=== PATIENT | male | born 1965 | race Caucasian/White ===

== ENCOUNTER 2020-10-24 14:48 | Emergency (ER) | payer MEDICAID ==
--- NOTE | 2020-10-24 15:28 | EDM.PDOC ---
ED HPI GENERAL MEDICAL PROBLEM - General Chief Complaint: General Stated Complaint: WIRE FOUND IN LUNGS Time Seen by Provider: 10/24/20 14:55 Source of Information: Reports: Patient, Family History Limitations: Reports: No Limitations - History of Present Illness INITIAL COMMENTS - FREE TEXT/NARRATIVE: Patient presented to the ED because of a FB which was found on the Left lower lobe of the left lung when he had the Chest CT which was ordered due to a chronic cough. There is no associated chest pain, hemoptysis. - Related Data Allergies Allergy/AdvReac Type Severity Reaction Status Date / Time No Known Allergies Allergy Verified 10/24/20 14:58 Home Meds: Home Meds Aspirin 81 mg PO DAILY 10/24/20 [History] Bisoprolol/Hydrochlorothiazide [Bisoprolol/HCTZ 5-6.25 MG] 1 tab DAILY 10/24/20 [History] Multivitamin [One-Daily Multi-Vitamin] 1 each PO DAILY 10/24/20 [History] Omeprazole Magnesium [Prilosec Otc] 20 mg PO DAILY #30 tablet. 10/24/20 [Rx] Past Medical History Cardiovascular History: Reports: Hypertension - Infectious Disease History Infectious Disease History: Reports: Chicken Pox - Past Surgical History HEENT Surgical History: Reports: Oral Surgery GI Surgical History: Reports: Hernia Repair/Other Social & Family History - Family History Family Medical History: No Pertinent Family History - Tobacco Use Tobacco Use Status *Q: Never Tobacco User - Caffeine Use Caffeine Use: Reports: Coffee - Recreational Drug Use Recreational Drug Use: No ED ROS GENERAL - Review of Systems Review Of Systems: See Below Constitutional: Reports: No Symptoms HEENT: Reports: No Symptoms Respiratory: Reports: Cough Cardiovascular: Reports: No Symptoms Endocrine: Reports: No Symptoms GI/Abdominal: Reports: No Symptoms : Reports: No Symptoms Musculoskeletal: Reports: No Symptoms Skin: Reports: No Symptoms Neurological: Reports: No Symptoms Psychiatric: Reports: No Symptoms ED EXAM, GENERAL - Physical Exam Exam: See Below Exam Limited By: No Limitations General Appearance: Alert, No Apparent Distress Ears: Normal External Exam, Normal Canal Nose: Normal Inspection, Normal Mucosa Throat/Mouth: Normal Inspection, Normal Lips Head: Atraumatic, Normocephalic Neck: Normal Inspection, Supple, Non-Tender, Full Range of Motion Respiratory/Chest: No Respiratory Distress, Lungs Clear, Normal Breath Sounds Cardiovascular: Normal Peripheral Pulses, Regular Rate, Rhythm, No Edema GI/Abdominal: Normal Bowel Sounds, Soft, Non-Tender Back Exam: Normal Inspection, Full Range of Motion Extremities: Normal Inspection, Normal Range of Motion, Non-Tender Course - Vital Signs Last Recorded V/S: Last Vital Signs Temp 36.6 C 10/24/20 14:50 Pulse 56 L 10/24/20 14:50 Resp 18 10/24/20 14:50 BP 137/85 10/24/20 14:50 Pulse Ox 100 10/24/20 14:50 - Orders/Labs/Meds Orders: Active Orders 24 hr Category Date Time Status Chest 2V [CR] Stat Exams 10/24/20 15:04 Taken Departure - Departure Time of Disposition: 15:30 Disposition: Home, Self-Care 01 Condition: Good Clinical Impression: GERD (gastroesophageal reflux disease), Foreign body - Discharge Information Prescriptions: Omeprazole Magnesium [Prilosec Otc] 20 mg PO DAILY #30 tablet.dr Instructions: Food Choices for Gastroesophageal Reflux Disease, Adult, [id number] Referrals: Becki Balderas PA-C [Primary Care Provider] - Forms: ED Department Discharge Additional Instructions: Please read discharge instructions on GERD and foreign body Read the list of foods and beverages that can cause acied reflux The metal in your chest is not causing you harm Follow up in a month Sepsis Event Note (ED) - Evaluation Sepsis Screening Result: No Definite Risk - Focused Exam Vital Signs: Vital Signs Temp Pulse Resp BP Pulse Ox 10/24/20 14:50 36.6 C 56 L 18 137/85 100 - My Orders Last 24 Hours: My Active Orders 10/24/20 15:04 Chest 2V [CR] Stat - Assessment/Plan Last 24 Hours: My Active Orders 10/24/20 15:04 Chest 2V [CR] Stat
--- NOTE | 2020-10-24 16:45 | CR ---
INDICATION: Foreign body. CHEST, TWO VIEWS: PA and lateral views of the chest were obtained 10/24/20 and compared with chest x-rays of 10/18/[address] of the chest dated 10/22/20. A collin-like metallic density is again noted in the left lower lobe at the lower middle lung field level posteriorly and appears unchanged in position and alignment compared with the previous examinations. No definite complicating process was identified. No other evidence of active disease was seen. MTDD
== END 2020-10-24 15:40 | disposition home or self-care (01) ==
LOC: FB.ED 14:48
DX: T17.808A Unspecified foreign body in other parts of respiratory tract causing other injury, initial encounter (principal); K21.9 Gastro-esophageal reflux disease without esophagitis; I10 Essential (primary) hypertension; Z79.82 Long term (current) use of aspirin; Z79.899 Other long term (current) drug therapy
CPT/HCPCS: 71046; 99283; 99283-25

== ENCOUNTER 2020-10-31 07:10 | Day surgery (SDC) | payer MEDICAID ==
[2020-10-31] MEDS ORDERED: Glycopyrrolate 0.2 MG/ML 5 ML MDV IV ONE (07:11)
[2020-10-31] MEDS ORDERED: Midazolam 1 MG/ML 2 ML SDV IV ONE (07:11)
[2020-10-31] MEDS ORDERED: Propofol 200 MG/20 ML SDV IV ONE (07:11)
[2020-10-31] MEDS ORDERED: Lidocaine 2% 5 ML SDV INJECT ONE (07:11)
[2020-10-31] MEDS ORDERED: Lactated Ringers 1,000 ML IV SCH (07:15)
[2020-10-31] MEDS ORDERED: Sodium Chloride 0.9% 10 ML Syringe FLUSH PRN (07:15)
--- NOTE | 2020-10-31 09:18 | PCM.OPNOTE ---
- General Post-Op/Procedure Note Date of Surgery/Procedure: 10/31/20 Operative Procedure(s): c scope Findings: diverticulosis of sigmoid colon Pre Op Diagnosis: colon cancer screening Post-Op Diagnosis: sigmoid diverticulosis Anesthesia Technique: PRECIOUS Primary Surgeon: Krishna Yanez Anesthesia Provider: Yoselin Fortune Pathology: none Complications: None Condition: Good Free Text/Narrative:: see dictation #[id number]
--- NOTE | 2020-10-31 11:35 | OR ---
DATE OF OPERATION: 10/31/2020 SURGEON: Krishna Yanez MD PROCEDURE PERFORMED: Colonoscopy. PREOPERATIVE DIAGNOSIS: Need for colon cancer screening. POSTOPERATIVE DIAGNOSIS: Sigmoid diverticulosis. INDICATIONS FOR PROCEDURE: Mr. Gibson is a 55-year-old white male who presents for followup colonoscopy. He had one done in [place] many years ago, apparently results are unknown. However, he was told that he needed a followup scope in 5 years. He is completely asymptomatic. He was offered and accepted colonoscopy. DESCRIPTION OF PROCEDURE: After an excellent IV sedation was administered, digital rectal exam was performed. No marked abnormality was noted. The flexible colonoscope was inserted and advanced to the cecum. The cecum was identified by usual anatomic markers. The prep was excellent. The following findings were noted. Ascending colon, unremarkable. Transverse colon, unremarkable. Descending colon, unremarkable. Sigmoid, occasional diverticula. Rectum and anus, unremarkable. Patient tolerated the procedure well. /[id number] /[id number]
== END 2020-10-31 10:01 | disposition home or self-care (01) ==
LOC: FB.SDS 07:10
PROVIDERS: ATTEND Surgery
DX: Z12.11 Encounter for screening for malignant neoplasm of colon (principal); K57.30 Diverticulosis of large intestine without perforation or abscess without bleeding; R05 Cough; I10 Essential (primary) hypertension; Z79.82 Long term (current) use of aspirin; Z79.899 Other long term (current) drug therapy; Z80.0 Family history of malignant neoplasm of digestive organs; Z98.890 Other specified postprocedural states
CPT/HCPCS: 00812-QZ; J2250; J2704; J3490; J7120